=== PATIENT | female | born 1935 | race Caucasian/White ===

== ENCOUNTER 2017-09-03 17:10 | Inpatient (IN) | payer MEDICARE, BC ==
[~2017-09-03] VITALS: Ht 154.9 cm; Wt 59.9 kg
[2017-09-03] MEDS ORDERED: LORA1TAB PO ×2 (18:30)
[2017-09-03] MEDS ORDERED: DILT180C53 PO (18:30)
[2017-09-03] MEDS ORDERED: LEVO150T8 PO (18:30)
[2017-09-03] MEDS ORDERED: RISP1TAB27 PO (18:30)
[2017-09-03] MEDS ORDERED: PARO20TA7 PO (18:30)
[2017-09-03 19:15] LABS: BASOPHILS # (AUTO) 0.1 K/uL (0.0-8.0); EOSINOPHILS # (AUTO) 0.3 K/uL (0.0-0.7); EOSINOPHILS % (AUTO) 3.3 % (0.0-7.0); HEMATOCRIT 30.9 % (31.2-41.9); HEMOGLOBIN 10.5 g/dL (10.9-14.3); LYMPHOCYTES # (AUTO) 2.1 K/uL (20.0-40.0); LYMPHOCYTES % (AUTO) 27.3 % (20.5-51.5); MEAN CORPUSCULAR HEMOGLOBIN 33.2 uug (24.7-32.8); MEAN CORPUSCULAR HGB CONC 34 g/dL (32.3-35.6); MEAN CORPUSCULAR VOLUME 98.3 fL (75.5-95.3); MONOCYTES # (AUTO) 0.5 K/uL (2.0-10.0); NEUTROPHILS # (AUTO) 4.8 K/uL (1.8-8.9); NEUTROPHILS % (AUTO) 61.4 % (38.5-71.5); PLATELET COUNT (AUTO) 466 K/uL (179-408); RED BLOOD CELL COUNT(AUTO) 3.15 MIL/uL (3.63-4.92); WHITE BLOOD COUNT (AUTO) 7.8 K/uL (3.8-11.8)
--- NOTE | 2017-09-03 19:23 | NUR ---
Pt back to ER from CT.
[2017-09-03 19:26] LABS: CARBON DIOXIDE 28 mmol/L (21-32); CHLORIDE 103 mmol/L (98-107); CREATININE 0.8 mg/dL (0.6-1.3); GLUCOSE 103 mg/dL (74-106); POTASSIUM 3.9 mmol/L (3.5-5.1); UREA NITROGEN, BLOOD 18 mg/dL (7-18)
[2017-09-03 19:32] LABS: ACETAMINOPHEN < 2.0 ug/mL (10-30); ALANINE AMINOTRANSFERASE 18 U/L (14-59); ALKALINE PHOSPHATASE 73 U/L (50-136); ASPARTATE AMINOTRANSFERASE 10 U/L (15-37); BILIRUBIN,DIRECT 0.1 mg/dL (0.0-0.2); BILIRUBIN,TOTAL 0.2 mg/dL (0.2-1.0); TOTAL PROTEIN, SERUM 7.7 g/dL (6.4-8.2)
[2017-09-03 19:33] LABS: ETHANOL < 3 MG/DL (0-0)
[2017-09-03 19:56] LABS: THYROID STIMULATING HORMONE 10.475 mIU/mL (0.358-3.740)
--- NOTE | 2017-09-03 21:15 | NUR ---
Report given to Ramandeep HAWK Tele.
--- NOTE | 2017-09-03 21:15 | NUR ---
Admission report received from Morgan from ER.
--- NOTE | 2017-09-03 21:30 | NUR ---
Dr. Perla on panel call with Jean Carlos Alejandre NP.
[2017-09-03] MEDS ORDERED: MORPHINE SULFATE 2 MG/1 ML DISP.SYRIN IV PRN (21:45)
[2017-09-03] MEDS ORDERED: LORAZEPAM 1 MG TABLET PO PRN (21:45)
[2017-09-03] MEDS ORDERED: ACETAMINOPHEN 325 MG TABLET PO PRN (21:45)
[2017-09-03] MEDS ORDERED: ZOLPIDEM 5 MG TABLET PO PRN (21:45)
[2017-09-03] MEDS ORDERED: ONDANSETRON 4 MG/2 ML VIAL IV PRN (21:45)
[2017-09-03] MEDS ORDERED: ASPIRIN 325 MG TABLET PO ONE (21:45)
[2017-09-03] MEDS ORDERED: HYDROCODONE/APAP 5-325MG TABLET PO PRN (21:45)
[2017-09-03] MEDS ORDERED: MAGNESIUM HYDROXIDE 30 ML LIQUID UDC PO PRN (21:45)
[2017-09-03] MEDS ORDERED: NITROGLYCERIN 0.4 MG/TAB BOTTLE SL ONE (21:45)
--- NOTE | 2017-09-03 22:00 | NUR ---
Admitted patient from ER via gurney, accompanied by daughters with admitting DX: [id number]. Awake alert and oriented x 4. Able to move all extremities without difficulty. Denies any pain/CP at this time. Routine admission care done. Plan of care initiated.
[2017-09-03 22:30] VITALS: BP 132/77
--- NOTE | 2017-09-03 22:30 | NUR ---
Patient expressed that she feels afraid and starts crying. Patient's daughter agreed to stay at bedside for moral support. Will continue to monitor.
[2017-09-04 04:59] VITALS: BP 126/65
--- NOTE | 2017-09-04 06:15 | NUR ---
Shift end report: Patient slept in between care. Sitter 1:2 maintained.No complaint of pain/discomforts presented throughout the night. Expressing that she is scared being here. Assured patient that we are here to take care of her and she'll be safe. All needs attended and met. No significant event reported all night. Continue care as planned.
[2017-09-04 06:56] LABS: BASOPHILS # (AUTO) 0.1 K/uL (0.0-8.0); BASOPHILS % (AUTO) 0.9 % (0.0-2.0); EOSINOPHILS # (AUTO) 0.2 K/uL (0.0-0.7); EOSINOPHILS % (AUTO) 3.4 % (0.0-7.0); HEMATOCRIT 31.4 % (31.2-41.9); HEMOGLOBIN 11.1 g/dL (10.9-14.3); LYMPHOCYTES # (AUTO) 1.7 K/uL (20.0-40.0); MEAN CORPUSCULAR HEMOGLOBIN 34.7 uug (24.7-32.8); MEAN CORPUSCULAR HGB CONC 36 g/dL (32.3-35.6); MEAN CORPUSCULAR VOLUME 97.8 fL (75.5-95.3); MONOCYTES # (AUTO) 0.5 K/uL (2.0-10.0); MONOCYTES % (AUTO) 6.9 % (0.0-11.0); NEUTROPHILS # (AUTO) 4.2 K/uL (1.8-8.9); NEUTROPHILS % (AUTO) 62.8 % (38.5-71.5); PLATELET COUNT (AUTO) 497 K/uL (179-408); RED BLOOD CELL COUNT(AUTO) 3.21 MIL/uL (3.63-4.92); WHITE BLOOD COUNT (AUTO) 6.7 K/uL (3.8-11.8)
[2017-09-04] MEDS ORDERED: LEVOTHYROXINE SODIUM 150 MCG TABLET PO SCH (07:30)
[2017-09-04] MEDS ORDERED: PANTOPRAZOLE SODIUM 40 MG TABLET.DR PO SCH (07:30)
--- NOTE | 2017-09-04 07:30 | NUR ---
VERY ANXIOUS, TEARFUL THEN STARTED CRYING, WANTED HER 0730 ATIVAN BUT NOT ORDERED. EMOTIONAL SUPPORT PROVIDED. WILL MONITOR . BREAKFAST PROVIDED, TOLERATED WELL.
[2017-09-04 07:32] LABS: CHLORIDE 106 mmol/L (98-107); CHOLESTEROL 220 mg/dL (<200); CREATININE 0.8 mg/dL (0.6-1.3); GLUCOSE 108 mg/dL (74-106); HDL CHOLESTEROL 61 mg/dL (40-60); MAGNESIUM 1.8 mg/dL (1.8-2.4); PHOSPHOROUS 3.6 mg/dL (2.5-4.9); TRIGLYCERIDES 93 MG/DL (30-150); UREA NITROGEN, BLOOD 13 mg/dL (7-18)
[2017-09-04 07:44] LABS: CARBON DIOXIDE 25 mmol/L (21-32)
[2017-09-04] MEDS: risperiDONE 0.5 MG TABLET PO SCH ×2 (08:54→17:38)
[2017-09-04] MEDS: LORAZEPAM 1 MG TABLET PO PRN ×2 (08:57→15:05)
--- NOTE | 2017-09-04 08:57 | NUR ---
DISCUSSED ATIVAN HOME MED USE WITH SHERMAN KAUFMAN. MADE ORDER AND CARRIED OUT
[2017-09-04] MEDS ORDERED: MORPHINE SULFATE 4 MG/1 ML DISP.SYRIN IV PRN (09:00)
[2017-09-04] MEDS ORDERED: ASPIRIN 81 MG TAB.CHEW PO SCH (09:00)
[2017-09-04] MEDS ORDERED: DILTIAZEM HCL CD 180 MG CAP.SR.24H PO SCH (09:00)
[2017-09-04] MEDS ORDERED: PAROXETINE HCL 20 MG TABLET PO SCH (09:27)
--- NOTE | 2017-09-04 11:00 | NUR ---
PATIENT VERBALIZED FEELING CALMER, NOT TEARFUL OR CRYING. DAUGHTERS, MACIE AND JAQUELINE AT BEDSIDE, SUPPORTIVE OF PATIENT .
[2017-09-04 11:27] VITALS: BP 139/79
--- NOTE | 2017-09-04 14:01 | NUR ---
MANDEEP MULLIGAN NP AWARE OF DR KELSEY ORDER ,STATUS CHANGE TO [facility] AND CLEARED TO GO TO [facility]. WILL WRITE ORDER.
--- NOTE | 2017-09-04 14:16 | NUR ---
DR GODINEZ CALLED FOR ORDER TO DISCHARGE AND ADMIT PATIENT TO [facility] PREVIOUSLY PLANNED BY MANUELA. PENDING CALL BACK
--- NOTE | 2017-09-04 14:59 | NUR ---
2ND MESSAGE FOR DR GODINEZ FOR VERIFICATION OF MENTAL HEALTH ORDERS.
--- NOTE | 2017-09-04 15:07 | NUR ---
NERVOUS , GETTING ANXIOUS. WALKED WITH PATIENT IN HALLWAYS X 1 , MED WITH ATIVAN AND BACK TO BED. DAUGHTERS AT BEDSIDE, SUPPORTIVE OF PATIENT CARE.
--- NOTE | 2017-09-04 15:23 | NUR ---
DR GODINEZ CALLED WITH ORDER AND CARRIED OUT. NURSING [facility] DIRECTOR ROOSEVELT AWARE OF DISCHARGE. IMANI , [facility] RN AWARE OF ADMISSION, WILL HAVE ROOM 140A. DAUGHTERS AWARE OF ADMISSION TO [facility], VERY APPRECIATIVE.
--- NOTE | 2017-09-04 15:31 | NUR ---
LEFT MESSAGE FOR MANDEEP MULLIGAN NP , DR GODINEZ WILL ADMIT PATIENT IN [facility]. AWAITING DC ORDER
[2017-09-04 16:00] VITALS: BP 107/62
--- NOTE | 2017-09-04 17:40 | NUR ---
DISCHARGE PATIENT, REPORT GIVEN TO LAURA FRAZIER. WAITING FOR PATIETN TO FINISH DINNER AND WILL TAKE TO U
--- NOTE | 2017-09-04 17:55 | NUR ---
LEFT IN STABLE CONDITION WITH BELONGINGS AND INSTRUCTIONS. DAUGHTERS APPRECIATIVE OF CARE
[2017-09-04] MEDS ORDERED: ATORVASTATIN 10 MG TABLET PO SCH (21:00)
== END 2017-09-04 17:50 | DRG 282 ==
LOC: ER 17:14 → TELE 21:37 → MED 09-04 10:30
PROVIDERS: ADMIT Nurse Practitioner Acute Care; ATTEND Nurse Practitioner Acute Care
DX: I21.4 Non-ST elevation (NSTEMI) myocardial infarction (principal); E03.9 Hypothyroidism, unspecified; E78.5 Hyperlipidemia, unspecified; F32.9 Major depressive disorder, single episode, unspecified; F41.9 Anxiety disorder, unspecified; I10 Essential (primary) hypertension; Z90.13 Acquired absence of bilateral breasts and nipples; Z90.710 Acquired absence of both cervix and uterus; D52.9 Folate deficiency anemia, unspecified; Z85.3 Personal history of malignant neoplasm of breast; Z91.14 Patient's other noncompliance with medication regimen; I25.10 Atherosclerotic heart disease of native coronary artery without angina pectoris
CPT/HCPCS: 36415; 70030-TC; 70450; 71045; 82747; 83605; 83735; 84100; 84443; 85014; 85025; 85730; 87040; 93005; 93307; A4663; G0480; G0480-TC

== ENCOUNTER 2017-09-04 18:59 | Inpatient (IN) | payer MEDICARE, BC ==
[~2017-09-04] VITALS: Ht 154.9 cm; Wt 60.3 kg
[~2017-09-04 18:59] MED LIST: DILT180C53 PO; LEVO150T8 PO; LORA1TAB PO; PARO20TA7 PO; RISP1TAB27 PO
[2017-09-04 20:00] VITALS: BP 123/72
[2017-09-04] MEDS ORDERED: ACETAMINOPHEN 325 MG TABLET PO PRN (20:00)
[2017-09-04] MEDS ORDERED: TEMAZEPAM 7.5 MG CAPSULE PO PRN (20:00)
[2017-09-04] MEDS ORDERED: MAG HYDROX/AL HYDROX/SIMETH 30 ML LIQUID UDC PO PRN (20:00)
[2017-09-04] MEDS ORDERED: MAGNESIUM HYDROXIDE 30 ML LIQUID UDC PO PRN (20:00)
[2017-09-04] MEDS: LORAZEPAM 1 MG TABLET PO PRN (20:45)
[2017-09-05] MEDS: LEVOTHYROXINE SODIUM 150 MCG TABLET PO SCH (07:27)
[2017-09-05 07:30] VITALS: BP 130/82
[2017-09-05] MEDS ORDERED: LEVOTHYROXINE SODIUM 150 MCG TABLET PO SCH ×2 (07:30→09:00)
[2017-09-05] MEDS: DILTIAZEM HCL CD 180 MG CAP.SR.24H PO SCH (08:16)
[2017-09-05] MEDS: LORAZEPAM 1 MG TABLET PO PRN (08:20)
[2017-09-05] MEDS ORDERED: LORAZEPAM 1 MG TABLET PO PRN (12:00)
[2017-09-05] MEDS ORDERED: PAROXETINE HCL 20 MG TABLET PO SCH (12:00)
[2017-09-05] MEDS: PAROXETINE HCL 20 MG TABLET PO SCH (15:10)
[2017-09-05 15:32] VITALS: BP 114/70
[2017-09-05] MEDS: LORAZEPAM 0.5 MG TABLET PO PRN (18:34)
[2017-09-05 20:00] VITALS: BP 130/82
[2017-09-06] MEDS: LORAZEPAM 0.5 MG TABLET PO PRN ×3 (01:11→21:13)
[2017-09-06] MEDS: LEVOTHYROXINE SODIUM 150 MCG TABLET PO SCH (06:52)
[2017-09-06 07:30] VITALS: BP 137/74
[2017-09-06] MEDS: PAROXETINE HCL 20 MG TABLET PO SCH (08:39)
[2017-09-06] MEDS: DILTIAZEM HCL CD 180 MG CAP.SR.24H PO SCH (08:39)
[2017-09-06 16:19] VITALS: BP 121/64
[2017-09-06 19:45] VITALS: BP 137/72
[2017-09-07] MEDS: LEVOTHYROXINE SODIUM 150 MCG TABLET PO SCH (06:12)
[2017-09-07] MEDS: LORAZEPAM 0.5 MG TABLET PO PRN ×3 (06:12→17:02)
[2017-09-07 07:30] VITALS: BP 161/81
[2017-09-07] MEDS: DILTIAZEM HCL CD 180 MG CAP.SR.24H PO SCH (08:21)
[2017-09-07] MEDS: PAROXETINE HCL 20 MG TABLET PO SCH (08:21)
[2017-09-07 15:59] VITALS: BP 125/82
[2017-09-07 20:00] VITALS: BP 128/62
[2017-09-08] MEDS: LORAZEPAM 0.5 MG TABLET PO PRN ×4 (01:12→21:32)
[2017-09-08] MEDS: LEVOTHYROXINE SODIUM 150 MCG TABLET PO SCH (06:15)
[2017-09-08 08:00] VITALS: BP 138/78
[2017-09-08] MEDS: PAROXETINE HCL 20 MG TABLET PO SCH (08:43)
[2017-09-08] MEDS: DILTIAZEM HCL CD 180 MG CAP.SR.24H PO SCH (08:44)
[2017-09-08 12:16] VITALS: BP 119/66
[2017-09-08 16:20] VITALS: BP 133/67
[2017-09-08 19:00] VITALS: BP 129/74
[2017-09-09 03:39] VITALS: BP 125/68
[2017-09-09] MEDS: LORAZEPAM 0.5 MG TABLET PO PRN ×3 (04:18→16:44)
[2017-09-09] MEDS: LEVOTHYROXINE SODIUM 150 MCG TABLET PO SCH (06:05)
[2017-09-09] MEDS: PAROXETINE HCL 20 MG TABLET PO SCH (08:44)
[2017-09-09] MEDS: DILTIAZEM HCL CD 180 MG CAP.SR.24H PO SCH (08:46)
[2017-09-09 11:52] VITALS: BP 122/53
[2017-09-09 16:06] VITALS: BP 123/61
[2017-09-09 19:00] VITALS: BP 121/74
[2017-09-10] MEDS: LORAZEPAM 0.5 MG TABLET PO PRN ×3 (02:04→20:40)
[2017-09-10 04:00] VITALS: BP 123/74
[2017-09-10] MEDS: DILTIAZEM HCL CD 180 MG CAP.SR.24H PO SCH (08:29)
[2017-09-10] MEDS: LEVOTHYROXINE SODIUM 150 MCG TABLET PO SCH (08:30)
[2017-09-10] MEDS: PAROXETINE HCL 20 MG TABLET PO SCH (08:30)
[2017-09-10 11:34] VITALS: BP 133/79
[2017-09-10 15:33] VITALS: BP 116/85
[2017-09-10 20:00] VITALS: BP 124/68
[2017-09-11] MEDS: LEVOTHYROXINE SODIUM 150 MCG TABLET PO SCH (06:22)
[2017-09-11 08:19] VITALS: BP 122/80
[2017-09-11] MEDS: DILTIAZEM HCL CD 180 MG CAP.SR.24H PO SCH (08:19)
[2017-09-11] MEDS: LORAZEPAM 0.5 MG TABLET PO PRN (08:22)
[2017-09-11] MEDS: PAROXETINE HCL 20 MG TABLET PO SCH (09:00)
== END 2017-09-11 09:45 | disposition home health service (06) | DRG 885 ==
LOC: GPS 18:59 → MED 09-07 18:37 → GPSOV 09-07 18:47
PROVIDERS: ADMIT Psychiatry & Neurology Psychiatry; ATTEND Nurse Practitioner Acute Care
DX: F33.2 Major depressive disorder, recurrent severe without psychotic features (principal); I21.4 Non-ST elevation (NSTEMI) myocardial infarction; E03.9 Hypothyroidism, unspecified; F41.9 Anxiety disorder, unspecified; Z85.3 Personal history of malignant neoplasm of breast; Z90.13 Acquired absence of bilateral breasts and nipples; Z79.899 Other long term (current) drug therapy; Z90.710 Acquired absence of both cervix and uterus; D53.9 Nutritional anemia, unspecified; I10 Essential (primary) hypertension; Z91.14 Patient's other noncompliance with medication regimen